=== PATIENT | female | born 1935 | race Caucasian/White ===

== ENCOUNTER → 2023-03-22 | Outpatient (CLI) | payer BC | END | disposition home or self-care (01) | LOC: LAB 14:18 | PROVIDERS: ATTEND Nurse Practitioner Family | DX: L03.011 Cellulitis of right finger (principal) | CPT/HCPCS: 87205 ==

== ENCOUNTER → 2023-05-14 | Outpatient (CLI) | payer BC | END | disposition home or self-care (01) | LOC: XY 10:38 | PROVIDERS: ATTEND Internal Medicine | DX: L03.011 Cellulitis of right finger (principal); L03.032 Cellulitis of left toe | CPT/HCPCS: 78315; A9503 ==

== ENCOUNTER 2023-06-13 06:53 | Inpatient (IN) | payer BC ==
[~2023-06-13] VITALS: Ht 152.4 cm; Wt 90.7 kg
[2023-06-13] MEDS ORDERED: cloNIDine HCL 0.1 MG TAB PO ONE (07:15)
[2023-06-13 07:35] LABS: Basophils # (auto) 0.1 10 ^3/uL (0-0.2); Eosinophils # (auto) 0.1 10 ^3/uL (0-0.8); Hematocrit 40.2 % (36.0-46.0); Hemoglobin 13.6 g/dL (12.2-16.2); Lymphocytes # (auto) 1.8 10 ^3/uL (0.4-5.4); Mean Corpuscular Hemoglobin 29.1 pg (28.0-32.0); Mean Corpuscular Hgb Conc. 33.8 g/dL (32.0-36.0); Mean Corpuscular Volume 86.1 fL (80.0-100.0); Monocytes # (auto) 0.3 10 ^3/uL (0-1.3); Neutrophils # (auto) 3.5 10 ^3/uL (1.6-8.6); Nucleated Red Blood Cells % 0.1 %; Red Blood Cells 4.67 10^6/uL (4.0-5.20); Red Cell Distribution Width 15.7 % (11.8-14.3); White Blood Cell 5.8 10^3/uL (4.4-10.8)
[2023-06-13 07:49] LABS: Alanine Aminotransferase 10 U/L (7-40); Albumin 3.9 g/dL (3.2-4.8); Alkaline Phosphatase 91 U/L (46-116); Anion Gap 9.4 (5-15); Aspartate Aminotransferase 15 U/L (13-40); BUN/Creatinine Ratio 17.2 (10.0-20.0); Bilirubin, Total 1.2 mg/dL (0.2-1.0); Blood Urea Nitrogen 21 mg/dL (9-23); Calcium 9.8 mg/dL (8.5-10.1); Carbon Dioxide 25.6 mmol/L (20-30); Chloride 108 mmol/L (98-107); Glucose 107 mg/dL (74-106); Potassium 3.6 mmol/L (3.5-5.1); Sodium 143 mmol/L (136-145); Total Protein 5.8 g/dL (5.7-8.2)
[2023-06-13 08:41] VITALS: PULSE 84; RESP 18; O2SAT 97
[2023-06-13] MEDS ORDERED: NITROGLYCERIN 0.4 MG SL TAB SL PRN (12:00)
[2023-06-13] MEDS ORDERED: MORPHINE SULFATE INJ 2 MG/ml SYRG IV PRN (12:00)
[2023-06-13 12:58] LABS: INR 1.07 (0.9-1.15); Partial Thromboplastin Time 29.2 SEC (24.5-34.5); Prothrombin Time 11.2 sec (9.3-11.8)
[2023-06-13] MEDS ORDERED: amLODIPine BESYLATE 5 MG TAB PO ONE (13:00)
[2023-06-13] MEDS ORDERED: APIXABAN 2.5 MG TAB PO ONE (13:00)
[2023-06-13 13:14] LABS: Urine Bacteria NONE SEEN /hpf (None Seen); Urine Blood Negative /uL (Negative); Urine Clarity Clear (Clear); Urine Color Colorless (Yellow); Urine Protein, UAD 1+ (Negative); Urine Specific Gravity 1.006 (1.001-1.035); Urine Urobilinogen Normal (Negative); Urine WBC 4 /hpf (0 - 5)
[2023-06-13] MEDS ORDERED: METOPROLOL SUCCINATE XL 50 MG TAB PO ONE (13:45)
[2023-06-13] MEDS ORDERED: ASPirin-EC 81 mg tab PO ONE (13:45)
[2023-06-13] MEDS ORDERED: HCTZ 25 MG TAB PO ONE (13:45)
[2023-06-13] MEDS ORDERED: ACETAMINOPHEN 325 MG TAB PO PRN (13:45)
[2023-06-13] MEDS ORDERED: GABAPENTIN 100 MG CAP PO ONE (13:45)
[2023-06-13] MEDS ORDERED: HYDROcodone-ACET 5/325MG TAB PO PRN (13:45)
[2023-06-13] MEDS ORDERED: FUROSEMIDE 40 MG/4 ML VIAL IV ONE (14:45)
[2023-06-13 16:29] LABS: Erythrocyte Sedimentation Rate 6 mm/hr (0-20)
[2023-06-13] MEDS: RIVAROXABAN 15 MG TAB PO SCH (18:04)
[2023-06-13 19:30] VITALS: PULSE 70; RESP 20; O2SAT 96
[2023-06-13] MEDS: hydrALAZINE HCL 20 MG/ML VL IV PRN (20:05)
[2023-06-13] MEDS ORDERED: TEMAZEPAM 15 MG CAP PO ONE (21:00)
[2023-06-13 21:27] LABS: COVID19 ANTIGEN SOFIA FIA NEGATIVE (NEGATIVE)
[2023-06-13] MEDS ORDERED: ATORVASTATIN 20 MG TAB PO SCH (22:00)
[2023-06-13] MEDS ORDERED: APIXABAN 2.5 MG TAB PO SCH (22:00)
[2023-06-14] MEDS: hydrALAZINE HCL 20 MG/ML VL IV PRN ×2 (04:47→13:01)
[2023-06-14 05:44] LABS: Chloride 107 mmol/L (98-107); Potassium 3.2 mmol/L (3.5-5.1); Sodium 141 mmol/L (136-145)
[2023-06-14 05:45] LABS: Anion Gap 9.4 (5-15); Calcium 9.7 mg/dL (8.7-10.4); Carbon Dioxide 24.6 mmol/L (20-30)
[2023-06-14 05:50] LABS: BUN/Creatinine Ratio 15.5 (10.0-20.0); Blood Urea Nitrogen 18 mg/dL (9-23); Glucose 104 mg/dL (74-106); Triglycerides 86 mg/dL (< 150)
[2023-06-14 05:51] LABS: Magnesium 1.7 mg/dL (1.6-2.6)
[2023-06-14 06:24] LABS: LDL Cholesterol 114 mg/dL (< 100)
[2023-06-14 06:25] LABS: Cholesterol 188 mg/dL (< 200); HDL Cholesterol 51 mg/dL (40-59)
[2023-06-14 06:26] LABS: Basophils # (auto) 0 10 ^3/uL (0-0.2); Basophils % (auto) 0.7 % (0.0-2.0); Eosinophils # (auto) 0 10 ^3/uL (0-0.8); Eosinophils % (auto) 0.3 % (0.0-7.0); Hematocrit 40.6 % (36.0-46.0); Lymphocytes # (auto) 1.2 10 ^3/uL (0.4-5.4); Lymphocytes % (auto) 19.6 % (10.0-50.0); Mean Corpuscular Hemoglobin 29.4 pg (28.0-32.0); Mean Corpuscular Hgb Conc. 34.5 g/dL (32.0-36.0); Mean Corpuscular Volume 85.4 fL (80.0-100.0); Monocytes # (auto) 0.2 10 ^3/uL (0-1.3); Monocytes % (auto) 3.8 % (0.0-12.0); Neutrophils # (auto) 4.7 10 ^3/uL (1.6-8.6); Neutrophils % (auto) 75.6 % (37.0-80.0); Nucleated Red Blood Cells % 0.3 %; Red Blood Cells 4.75 10^6/uL (4.0-5.20); Red Cell Distribution Width 15.5 % (11.8-14.3); White Blood Cell 6.2 10^3/uL (4.4-10.8)
[2023-06-14 06:37] LABS: Rheumatoid Arthritis Factor 12.2 IU/mL (<14.0)
[2023-06-14 07:35] VITALS: PULSE 67; RESP 22; O2SAT 97
[2023-06-14] MEDS ORDERED: POTASSIUM CHL 20 Meq TABLET PO ONE (08:30)
[2023-06-14 09:06] LABS: Anti-Nuclear Antibody Direct Positive (Negative)
[2023-06-14 09:53] VITALS: BP 189/96; PULSE 66; RESP 17; TEMP 97.8; O2SAT 98
[2023-06-14] MEDS: GABAPENTIN 100 MG CAP PO SCH ×2 (09:59→10:00)
[2023-06-14] MEDS ORDERED: METOPROLOL SUCCINATE XL 50 MG TAB PO SCH ×2 (10:00)
[2023-06-14] MEDS ORDERED: HCTZ 25 MG TAB PO SCH (10:00)
[2023-06-14] MEDS ORDERED: amLODIPine BESYLATE 5 MG TAB PO SCH (10:00)
[2023-06-14] MEDS ORDERED: ASPirin-EC 81 mg tab PO SCH (10:00)
[2023-06-14] MEDS ORDERED: FUROSEMIDE 40 MG/4 ML VIAL IV SCH (10:00)
[2023-06-14 10:26] VITALS: BP 189/96; PULSE 66; RESP 17; TEMP 97.8; O2SAT 98
[2023-06-14] MEDS ORDERED: RIV15T PO (12:46)
[2023-06-14] MEDS ORDERED: DOXY100T2 PO (12:46)
[2023-06-14] MEDS ORDERED: GAB100C PO (12:46)
[2023-06-14] MEDS ORDERED: POTA-211 PO (12:46)
[2023-06-14] MEDS ORDERED: IBUP-1455 PO (12:46)
[2023-06-14] MEDS ORDERED: METH4PAK3 PO (12:46)
[2023-06-14] MEDS ORDERED: HYDR12.55 PO (12:46)
[2023-06-14] MEDS ORDERED: BUME2TAB5 PO (12:46)
[2023-06-14] MEDS ORDERED: ATOR20TA50 PO (12:46)
[2023-06-14] MEDS ORDERED: CEPH250C2 PO (12:46)
[2023-06-14] MEDS ORDERED: CLIN300C70 PO (12:46)
[2023-06-14] MEDS ORDERED: METO-289 PO (12:46)
[2023-06-14] MEDS ORDERED: ASPI81CH59 PO (12:46)
[2023-06-14] MEDS ORDERED: amLODIPine BESYLATE 5 MG TAB PO ONE (14:30)
[2023-06-14 15:11] VITALS: BP 151/98; PULSE 80; RESP 17; TEMP 97.5; O2SAT 96
[2023-06-14 16:20] VITALS: BP 151/98; PULSE 80; RESP 17; TEMP 97.5; O2SAT 96
[2023-06-14] MEDS: RIVAROXABAN 15 MG TAB PO SCH (17:46)
[2023-06-14] MEDS ORDERED: ATORVASTATIN 20 MG TAB PO SCH (22:00)
[2023-06-15] MEDS ORDERED: AZITHROMYCIN 500MG/ 250ML 250 ML IV SCH (10:00)
[2023-06-15 23:06] LABS: CCP IgG/IgA Antibody 0 units (0-19)
== END 2023-06-14 18:50 | disposition home or self-care (01) | DRG 291 ==
LOC: ER 06:53 → EDBD 06:53 → TELE 11:53 → TELE-EAST 06-14 09:36
PROVIDERS: ADMIT Internal Medicine Geriatric Medicine; ATTEND Student in an Organized Health Care Education/Training Program
DX: I13.0 Hypertensive heart and chronic kidney disease with heart failure and stage 1 through stage 4 chronic kidney disease, or unspecified chronic kidney disease (principal); I50.43 Acute on chronic combined systolic (congestive) and diastolic (congestive) heart failure; Z20.822 Contact with and (suspected) exposure to COVID-19; I42.9 Cardiomyopathy, unspecified; I48.91 Unspecified atrial fibrillation; J43.9 Emphysema, unspecified; J47.9 Bronchiectasis, uncomplicated; M06.9 Rheumatoid arthritis, unspecified; N18.32 Chronic kidney disease, stage 3b; M35.00 Sjogren syndrome, unspecified; E66.8 Other obesity; Z68.39 Body mass index [BMI] 39.0-39.9, adult; Z79.82 Long term (current) use of aspirin; Z79.899 Other long term (current) drug therapy; Z82.49 Family history of ischemic heart disease and other diseases of the circulatory system; Z87.891 Personal history of nicotine dependence; Z95.0 Presence of cardiac pacemaker; Z86.16 Personal history of COVID-19; Z86.73 Personal history of transient ischemic attack (TIA), and cerebral infarction without residual deficits
CPT/HCPCS: 36415; 70450; 71045; 71250; 74176; 76775; 80048; 80053; 80061; 81001; 83036; 83605; 83735; 83880; 84443; 84484; 85025; 85610; 85652; 85730; 86038; 86200; 86431; 87081; 87426; 93005; 93306; 93886; 93970; G0378